=== PATIENT | male | born 1945 | race Caucasian/White ===

== ENCOUNTER 2023-09-25 10:55 | Inpatient (IN) | payer OTHER ==
[2023-09-25] MEDS ORDERED: Furosemide 40 MG (4 mL) VIAL ONE (11:14)
[2023-09-25 11:30] LABS: #Eosinphils 0.1 10x3/uL (0.0-0.5); #Monocytes 0.8 10x3/uL (0.0-1.1); #Neutrophils 11.5 10x3/uL (1.5-8.4); %Basophils 0.3 % (0.0-2.0); %Eosinophils 0.9 % (0.0-6.0); %Lymphocytes 5.2 % (18.0-47.0); %Monocytes 5.8 % (0.0-10.0); %Neutrophils 86.7 % (40.0-75.0); Hematocrit 35.7 % (38.8-50.0); Hemoglobin 11.6 g/dL (13.5-17.5); Mean Corpuscular HGB CONC 32.5 g/dL (32.0-36.0); Mean Corpuscular Hemoglobin 32.3 pg (27.0-33.0); Mean Corpuscular Volume 99.4 fl (81.2-95.1); Mean Platelet Volume 9.9 fl (7.4-10.4); Platelet Count 194 10x3/uL (150-450); RBC Distribution Width 14.5 % (11.5-14.5); Red Blood Cell (RBC) Count 3.59 10x6/uL (4.32-5.72); White Blood Cell (WBC) Count 13.3 10x3/uL (3.5-10.5)
[2023-09-25 11:45] LABS: ALT (SGPT) 17 U/L (8-55); AST (SGOT) 20 U/L (5-34); Albumin 3.8 g/dL (3.4-4.8); Alkaline Phosphatase 65 U/L (40-110); Anion Gap 15 mmol/L (10-20); BUN (Urea Nitrogen) 17 mg/dL (8.4-25.7); Bilirubin, Total 1.3 mg/dL (0.2-1.2); Calc. Creatinine Clearance 0 mL/min (70-130); Calcium 8.5 mg/dL (7.8-10.44); Carbon Dioxide 22 mmol/L (23-31); Chloride 104 mmol/L (98-107); Estimated GFR 70; Globulin 2.8 g/dL (2.4-3.5); Glucose 148 mg/dL (83-110); Magnesium 1.8 mg/dL (1.6-2.6); Potassium 4.5 mmol/L (3.5-5.1); Protein, Total 6.6 g/dL (5.8-8.1); Sodium 136 mmol/L (136-145)
[2023-09-25] MEDS ORDERED: Ondansetron ODT 4 MG TAB PO PRN (12:38)
[2023-09-25] MEDS ORDERED: HYDROcodone/Acetaminophen 5/325 mg Tablet PO PRN (12:38)
[2023-09-25 13:31] LABS: Lactic Acid 0.7 mmol/L (0.5-2.2)
[2023-09-25 16:52] LABS: Influenza A by NAA Not Detected (NotDetected); Influenza B by NAA Not Detected (NotDetected); SARS-CoV-2 NAA Rapid Test Not Detected (NotDetected)
[2023-09-25] MEDS: LevoFLOXacin 750 mg/D5W 750 MG in Premix 1 BAG IVPB SCH (16:58)
[2023-09-25] MEDS: Labetalol HCl 100 MG/20 ML VIAL SLOW IVP PRN (16:58)
[2023-09-25] MEDS: hydrALAZINE 20 MG/ML VIAL SLOW IVP PRN (19:48)
[2023-09-25] MEDS: Famotidine 20 MG TAB PO SCH (20:46)
[2023-09-25] MEDS: ALPRAZolam 0.5 MG TAB PO SCH (20:46)
[2023-09-25] MEDS: hydrALAZINE 25 MG TAB PO SCH (20:46)
[2023-09-25] MEDS: Terazosin HCl 5 MG CAP PO SCH (20:47)
[2023-09-26 03:49] LABS: Mean Corpuscular HGB CONC 33.3 g/dL (32.0-36.0); Mean Corpuscular Hemoglobin 33.1 pg (27.0-33.0); Mean Corpuscular Volume 99.3 fl (81.2-95.1); Platelet Count 145 10x3/uL (150-450); RBC Distribution Width 14.6 % (11.5-14.5); Red Blood Cell (RBC) Count 3.02 10x6/uL (4.32-5.72); White Blood Cell (WBC) Count 10.4 10x3/uL (3.5-10.5)
[2023-09-26 03:51] LABS: MDiff Complete? YES
[2023-09-26 04:00] LABS: ALT (SGPT) 14 U/L (8-55); AST (SGOT) 14 U/L (5-34); Alkaline Phosphatase 47 U/L (40-110); Anion Gap 14 mmol/L (10-20); BUN (Urea Nitrogen) 26 mg/dL (8.4-25.7); Bilirubin, Total 1.2 mg/dL (0.2-1.2); Calc. Creatinine Clearance 63 mL/min (70-130); Calcium 7.7 mg/dL (7.8-10.44); Carbon Dioxide 23 mmol/L (23-31); Cardiac Risk 2.5 (Less than 4.5); Chloride 104 mmol/L (98-107); Cholesterol 66 mg/dl (< 200 Desired); Estimated GFR 56; Globulin 2.2 g/dL (2.4-3.5); Glucose 106 mg/dL (83-110); HDL Cholesterol 26 mg/dL (>60 Neg Risk); LDL Cholesterol, Calculated 34 mg/dL; Potassium 3.9 mmol/L (3.5-5.1); Protein, Total 5.2 g/dL (5.8-8.1); Sodium 137 mmol/L (136-145); Triglycerides 32 mg/dL (Less than 150)
[2023-09-26 04:20] LABS: Band 15 % (5-11); Lymphocytes 7 % (21-51); Monocytes 3 % (0-10); Neutrophil 75 % (42-75)
[2023-09-26 04:23] LABS: Giant Platelets SLIGHT HPF (0-5); Macrocytosis SLIGHT = 6-15 cells (100X) (0-5/hpf); Platelet Clumps SLIGHT
[2023-09-26 04:24] LABS: Platelet Adequacy Comment Appears Adequate
[2023-09-26] MEDS: Furosemide 40 MG (4 mL) VIAL SLOW IVP SCH (05:15)
[2023-09-26 05:40] LABS: Mean Platelet Volume 10.3 fl (7.4-10.4)
[2023-09-26] MEDS: Enoxaparin 40 MG (0.4 mL) SYRINGE SC SCH (08:13)
[2023-09-26] MEDS: Carvedilol 25 MG TAB PO SCH (08:14)
[2023-09-26] MEDS: Potassium Chloride 10 MEQ TAB PO SCH (08:14)
[2023-09-26 11:01] LABS: Bilirubin Neg (Negative); Blood, Urine Negative (Negative); Clarity Clear (Clear); Glucose, Urine (Dipstick) Normal (Negative); Ketone, Urine Negative (Negative); Leukocyte Negative (Negative); Nitrite Negative (Negative); Protein, Urine (Dipstick) 30 mg/dl (Neg-Trace); Urobilinogen Normal mg/dL (Less than 2)
[2023-09-26 11:23] LABS: CAUTI Indications for Culture Dysuria,urgency,freq; Mucous/LPF 1+ LPF (<2+); RBC/HPF None Seen HPF (0-3); Squamous Epithelial 0-3 HPF (0-3); WBC/HPF 0-3 HPF (0-3)
[2023-09-26 11:24] LABS: Bacteria/HPF 2+ HPF (None Seen)
[2023-09-26 11:25] LABS: Urine Culture Reflex No No
[2023-09-26] MEDS: Carvedilol 6.25 MG TAB PO SCH (17:19)
[2023-09-26] MEDS: Acetaminophen 325 MG TAB PO PRN (20:34)
[2023-09-26] MEDS: hydrALAZINE 25 MG TAB PO SCH (21:07)
[2023-09-27 03:36] LABS: ALT (SGPT) 12 U/L (8-55); AST (SGOT) 16 U/L (5-34); Albumin 2.8 g/dL (3.4-4.8); Alkaline Phosphatase 41 U/L (40-110); Anion Gap 11 mmol/L (10-20); BUN (Urea Nitrogen) 43 mg/dL (8.4-25.7); Bilirubin, Total 0.6 mg/dL (0.2-1.2); Calc. Creatinine Clearance 49 mL/min (70-130); Calcium 7.6 mg/dL (7.8-10.44); Carbon Dioxide 26 mmol/L (23-31); Chloride 105 mmol/L (98-107); Estimated GFR 41; Globulin 2.2 g/dL (2.4-3.5); Glucose 103 mg/dL (83-110); Potassium 3.9 mmol/L (3.5-5.1); Sodium 138 mmol/L (136-145)
[2023-09-27 03:38] LABS: #Eosinphils 0.1 10x3/uL (0.0-0.5); #Monocytes 0.5 10x3/uL (0.0-1.1); #Neutrophils 4.9 10x3/uL (1.5-8.4); %Basophils 0.2 % (0.0-2.0); %Eosinophils 2.2 % (0.0-6.0); %Lymphocytes 13.7 % (18.0-47.0); %Monocytes 7.2 % (0.0-10.0); %Neutrophils 75.6 % (40.0-75.0); Hematocrit 28.1 % (38.8-50.0); Hemoglobin 9.2 g/dL (13.5-17.5); Mean Corpuscular HGB CONC 32.7 g/dL (32.0-36.0); Mean Corpuscular Hemoglobin 32.7 pg (27.0-33.0); Mean Platelet Volume 10.5 fl (7.4-10.4); Platelet Count 147 10x3/uL (150-450); RBC Distribution Width 14.6 % (11.5-14.5); Red Blood Cell (RBC) Count 2.81 10x6/uL (4.32-5.72); White Blood Cell (WBC) Count 6.4 10x3/uL (3.5-10.5)
[2023-09-27] MEDS: Furosemide 40 MG (4 mL) VIAL SLOW IVP SCH (06:51)
[2023-09-27] MEDS: Furosemide 20 MG (2 mL) VIAL SLOW IVP SCH (09:44)
[2023-09-27] MEDS: LevoFLOXacin 750 mg/D5W 750 MG in Premix 1 BAG IVPB SCH (16:31)
[2023-09-27] MEDS: Famotidine 20 MG TAB PO SCH (20:17)
[2023-09-28 03:06] LABS: #Eosinphils 0.2 10x3/uL (0.0-0.5); #Monocytes 0.5 10x3/uL (0.0-1.1); #Neutrophils 5.6 10x3/uL (1.5-8.4); %Basophils 0.4 % (0.0-2.0); %Eosinophils 2.3 % (0.0-6.0); %Lymphocytes 11.3 % (18.0-47.0); %Monocytes 7.5 % (0.0-10.0); %Neutrophils 78.2 % (40.0-75.0); Hematocrit 28.9 % (38.8-50.0); Hemoglobin 9.3 g/dL (13.5-17.5); Mean Corpuscular HGB CONC 32.2 g/dL (32.0-36.0); Mean Corpuscular Hemoglobin 32.7 pg (27.0-33.0); Mean Corpuscular Volume 101.8 fl (81.2-95.1); Mean Platelet Volume 10.6 fl (7.4-10.4); Platelet Count 149 10x3/uL (150-450); RBC Distribution Width 14.6 % (11.5-14.5); Red Blood Cell (RBC) Count 2.84 10x6/uL (4.32-5.72); White Blood Cell (WBC) Count 7.1 10x3/uL (3.5-10.5)
[2023-09-28 03:25] LABS: ALT (SGPT) 15 U/L (8-55); AST (SGOT) 21 U/L (5-34); Albumin 2.8 g/dL (3.4-4.8); Alkaline Phosphatase 45 U/L (40-110); Anion Gap 10 mmol/L (10-20); BUN (Urea Nitrogen) 46 mg/dL (8.4-25.7); Bilirubin, Total 0.5 mg/dL (0.2-1.2); Calc. Creatinine Clearance 47 mL/min (70-130); Calcium 7.6 mg/dL (7.8-10.44); Carbon Dioxide 27 mmol/L (23-31); Chloride 106 mmol/L (98-107); Estimated GFR 39; Globulin 2.3 g/dL (2.4-3.5); Glucose 107 mg/dL (83-110); Protein, Total 5.1 g/dL (5.8-8.1); Sodium 139 mmol/L (136-145)
[2023-09-28 06:32] VITALS: BMI 28.6
[2023-09-28] MEDS: Carvedilol 3.125 MG TAB PO SCH (16:17)
[2023-09-29 08:26] LABS: ALT (SGPT) 18 U/L (8-55); AST (SGOT) 20 U/L (5-34); Albumin 2.8 g/dL (3.4-4.8); Alkaline Phosphatase 45 U/L (40-110); Anion Gap 10 mmol/L (10-20); BUN (Urea Nitrogen) 40 mg/dL (8.4-25.7); Bilirubin, Total 0.5 mg/dL (0.2-1.2); Calc. Creatinine Clearance 69 mL/min (70-130); Calcium 7.8 mg/dL (7.8-10.44); Carbon Dioxide 27 mmol/L (23-31); Chloride 108 mmol/L (98-107); Estimated GFR 64; Globulin 2.4 g/dL (2.4-3.5); Glucose 104 mg/dL (83-110); Protein, Total 5.2 g/dL (5.8-8.1); Sodium 141 mmol/L (136-145)
[2023-09-29] MEDS: Furosemide 40 MG TAB PO SCH (09:34)
[2023-09-29] MEDS: Cefdinir 300 MG CAP PO SCH ×2 (09:56→21:56)
[2023-09-29] MEDS: guaiFENesin/Codeine Phosphate 100 mg/10 mg 5 ml UD Cup PO PRN (14:43)
[2023-09-29] MEDS: Famotidine 20 MG TAB PO SCH (21:57)
[2023-09-30 05:00] LABS: #Eosinphils 0.4 10x3/uL (0.0-0.5); #Monocytes 0.5 10x3/uL (0.0-1.1); #Neutrophils 4.6 10x3/uL (1.5-8.4); %Basophils 0.6 % (0.0-2.0); %Eosinophils 6.4 % (0.0-6.0); %Lymphocytes 12.3 % (18.0-47.0); %Monocytes 8.4 % (0.0-10.0); %Neutrophils 71.2 % (40.0-75.0); Hematocrit 30.4 % (38.8-50.0); Hemoglobin 9.6 g/dL (13.5-17.5); Mean Corpuscular HGB CONC 31.6 g/dL (32.0-36.0); Mean Corpuscular Hemoglobin 32.2 pg (27.0-33.0); Mean Platelet Volume 10.4 fl (7.4-10.4); Platelet Count 165 10x3/uL (150-450); RBC Distribution Width 14.4 % (11.5-14.5); Red Blood Cell (RBC) Count 2.98 10x6/uL (4.32-5.72); White Blood Cell (WBC) Count 6.4 10x3/uL (3.5-10.5)
[2023-09-30 05:15] LABS: Anion Gap 10 mmol/L (10-20); BUN (Urea Nitrogen) 37 mg/dL (8.4-25.7); Calc. Creatinine Clearance 71 mL/min (70-130); Calcium 7.9 mg/dL (7.8-10.44); Carbon Dioxide 26 mmol/L (23-31); Chloride 108 mmol/L (98-107); Estimated GFR 67; Glucose 115 mg/dL (83-110); Potassium 4.1 mmol/L (3.5-5.1); Sodium 140 mmol/L (136-145)
[2023-09-30 05:17] LABS: CRP (Inflammatory) 6.49 mg/dL (= or < 0.5)
[2023-09-30] MEDS: Cefepime 1 GM in Sodium Chloride 0.9% 100 ML IVPB SCH (10:14)
[2023-09-30] MEDS: LevoFLOXacin 750 mg/D5W 750 MG in Premix 1 BAG IVPB SCH (11:00)
[2023-09-30] MEDS: Benzonatate 100 MG CAP PO SCH (14:23)
[2023-09-30] MEDS: Ipratropium/Albuterol 3 ML NEB NEB PRN (18:55)
[2023-10-01 04:23] LABS: #Eosinphils 0.4 10x3/uL (0.0-0.5); #Monocytes 0.5 10x3/uL (0.0-1.1); %Basophils 0.7 % (0.0-2.0); %Lymphocytes 12.9 % (18.0-47.0); %Monocytes 8.7 % (0.0-10.0); %Neutrophils 69.1 % (40.0-75.0); Hematocrit 30.9 % (38.8-50.0); Hemoglobin 9.9 g/dL (13.5-17.5); Mean Corpuscular Hemoglobin 32.2 pg (27.0-33.0); Mean Corpuscular Volume 100.7 fl (81.2-95.1); Mean Platelet Volume 10.3 fl (7.4-10.4); Platelet Count 158 10x3/uL (150-450); RBC Distribution Width 14.2 % (11.5-14.5); Red Blood Cell (RBC) Count 3.07 10x6/uL (4.32-5.72); White Blood Cell (WBC) Count 5.7 10x3/uL (3.5-10.5)
[2023-10-01 04:40] LABS: Anion Gap 12 mmol/L (10-20); BUN (Urea Nitrogen) 31 mg/dL (8.4-25.7); Calc. Creatinine Clearance 73 mL/min (70-130); Carbon Dioxide 25 mmol/L (23-31); Chloride 108 mmol/L (98-107); Estimated GFR 69; Glucose 112 mg/dL (83-110); Potassium 4.2 mmol/L (3.5-5.1); Sodium 141 mmol/L (136-145)
[2023-10-01] MEDS: Carvedilol 6.25 MG TAB PO SCH (12:53)
[2023-10-01] MEDS: hydrALAZINE 25 MG TAB PO SCH (20:58)
[2023-10-02 05:53] LABS: #Eosinphils 0.5 10x3/uL (0.0-0.5); #Monocytes 0.7 10x3/uL (0.0-1.1); #Neutrophils 4.3 10x3/uL (1.5-8.4); %Basophils 0.5 % (0.0-2.0); %Eosinophils 6.8 % (0.0-6.0); %Lymphocytes 15.2 % (18.0-47.0); %Monocytes 10.7 % (0.0-10.0); Hematocrit 30.5 % (38.8-50.0); Hemoglobin 9.9 g/dL (13.5-17.5); Mean Corpuscular HGB CONC 32.5 g/dL (32.0-36.0); Mean Corpuscular Volume 101.7 fl (81.2-95.1); Mean Platelet Volume 10.6 fl (7.4-10.4); Platelet Count 148 10x3/uL (150-450); RBC Distribution Width 13.9 % (11.5-14.5); White Blood Cell (WBC) Count 6.6 10x3/uL (3.5-10.5)
[2023-10-02 06:01] LABS: ALT (SGPT) 29 U/L (8-55); AST (SGOT) 26 U/L (5-34); Albumin 2.8 g/dL (3.4-4.8); Alkaline Phosphatase 44 U/L (40-110); Anion Gap 12 mmol/L (10-20); BUN (Urea Nitrogen) 31 mg/dL (8.4-25.7); Bilirubin, Total 0.4 mg/dL (0.2-1.2); Calc. Creatinine Clearance 62 mL/min (70-130); Carbon Dioxide 28 mmol/L (23-31); Chloride 107 mmol/L (98-107); Estimated GFR 57; Globulin 2.4 g/dL (2.4-3.5); Glucose 107 mg/dL (83-110); Potassium 4.7 mmol/L (3.5-5.1); Protein, Total 5.2 g/dL (5.8-8.1); Sodium 142 mmol/L (136-145)
[2023-10-02] MEDS: hydrALAZINE 20 MG/ML VIAL SLOW IVP SCH (15:10)
[2023-10-02 16:53] VITALS: TEMP 97.7
[2023-10-02 17:11] VITALS: BP 196/68
== END 2023-10-02 17:18 | disposition home or self-care (01) | DRG 193 ==
LOC: CSHERS 10:55 → EEVIPCON 12:31 → CSHICU 12:31 → CSHTELE 09-28 18:45
PROVIDERS: ADMIT Emergency Medicine; ATTEND Internal Medicine
PROC: 5A09457 Assistance with Respiratory Ventilation, 24-96 Consecutive Hours, Continuous Positive Airway Pressure (ICD-10-PCS; principal; 2023-09-25)
DX: J18.9 Pneumonia, unspecified organism (principal); I50.33 Acute on chronic diastolic (congestive) heart failure; J96.01 Acute respiratory failure with hypoxia; K40.40 Unilateral inguinal hernia, with gangrene, not specified as recurrent; I31.39 Other pericardial effusion (noninflammatory); N17.9 Acute kidney failure, unspecified; I11.0 Hypertensive heart disease with heart failure; J06.9 Acute upper respiratory infection, unspecified; G47.33 Obstructive sleep apnea (adult) (pediatric); I16.0 Hypertensive urgency; R59.0 Localized enlarged lymph nodes; N20.0 Calculus of kidney; Z88.1 Allergy status to other antibiotic agents; Z79.899 Other long term (current) drug therapy; Z90.49 Acquired absence of other specified parts of digestive tract; Z98.890 Other specified postprocedural states
CPT/HCPCS: 36415; 71045; 71250; 74176; 80048; 80053; 80061; 81001; 83605; 83735; 83880; 84145; 84484; 85025; 86140; 87040; 87070; 87205; 93005; 93010; 93306; 94640; 94760; 94762; 96374; J0360; J0692; J1650; J1940; J1956; J3490; J7620